=== PATIENT | female | born 1945 | race Two or more races ===

== ENCOUNTER 2017-05-24 17:09 | Inpatient (IN) | payer MEDICARE, MEDICAID ==
[~2017-05-24] VITALS: Ht 165.1 cm; Wt 64.9 kg
--- NOTE | 2017-05-24 17:13 | NUR ---
BBRA FROM HOME FOR SOB SINCE THURSDAY PER PT "SINCE THEY INCREASED MY CHEMO DOSAGE". GOWNED PT AWAITING MD ORDER. PLACED ON MONITOR.
--- NOTE | 2017-05-24 17:20 | NUR ---
RFA #20 IV ACCESS. BLOOD SAMPLE COLLECTED SENT TO LAB
[2017-05-24] MEDS ORDERED: IV NS 0.9% 1,000 ML BAG IV ONE (17:30)
[2017-05-24 17:45] LABS: BASOPHILS # (AUTO) 0.1 /CMM (0.0-0.2); BASOPHILS % (AUTO) 1.1 % (0.0-2.0); EOSINOPHILS % (AUTO) 0.3 % (0.0-6.0); HEMATOCRIT 30 % (33-45); HEMOGLOBIN 9.7 g/dL (11.5-14.8); LYMPHOCYTES # (AUTO) 1.5 /CMM (0.8-4.8); MEAN CORPUSCULAR HEMOGLOBIN 31 PG (26.0-33.0); MEAN CORPUSCULAR HGB CONC 33 g/dl (31.0-36.0); MEAN CORPUSCULAR VOLUME 96 fL (82-100); MONOCYTES # (AUTO) 0.7 /CMM (0.1-1.30); MONOCYTES % (AUTO) 6.9 % (2.0-12.0); NEUTROPHILS # (AUTO) 8.5 /CMM (1.8-8.9); NEUTROPHILS % (AUTO) 77.7 % (43.0-81.0); PLATELET COUNT (AUTO) 91 /CMM (150-450); RDW COEFFICIENT OF VARIATION 19.5 (11.5-15.0); RED BLOOD CELL COUNT(AUTO) 3.12 MIL/uL (4.0-5.2); WHITE BLOOD COUNT (AUTO) 10.8 K/uL (4.3-11.0)
[2017-05-24 17:46] LABS: CARBON DIOXIDE 16 mmol/L (21-32); CHLORIDE 106 mmol/L (98-107); CREATININE 1.4 mg/dL (0.6-1.3); GLUCOSE 142 mg/dL (74-106); POTASSIUM 5.2 mmol/L (3.5-5.1); SODIUM SERUM 137 mmol/L (136-145); UREA NITROGEN, BLOOD 30 mg/dL (7-18)
[2017-05-24 17:54] LABS: TROPONIN I 0.084 ng/mL (0.00-0.056)
[2017-05-24] MEDS ORDERED: IOHEXOL-350 100 ML VIAL IV ONE (17:54)
[2017-05-24] MEDS ORDERED: IV NS 0.9% 250 ML IV ONE (17:54)
[2017-05-24] MEDS ORDERED: CT SWABBABLE VALVE TRANS SET 1 EA INFUS.SET MC ONE (17:55)
--- NOTE | 2017-05-24 17:58 | NUR ---
PATIENT TAKEN TO CTA VIA STRETCHER.
[2017-05-24 17:59] LABS: ALANINE AMINOTRANSFERASE 18 U/L (12-78); ALBUMIN 3.7 g/dL (3.4-5.0); ALKALINE PHOSPHATASE 64 U/L (46-116); ASPARTATE AMINOTRANSFERASE 59 U/L (15-37); B-TYPE NATRIURETIC PEPTIDE 15311 PG/ML (0-125); BILIRUBIN,DIRECT 0.3 mg/dL (0.0-0.2); TOTAL PROTEIN, SERUM 6.5 g/dL (6.4-8.2)
[2017-05-24] MEDS ORDERED: LORAZEPAM INJ 2 MG/ML VIAL ONE (18:10)
--- NOTE | 2017-05-24 18:20 | NUR ---
CALLED DR VELASQUEZ'S OFFICE, TRANSFERRED CALL TO DR FULLER
--- NOTE | 2017-05-24 18:29 | NUR ---
PATIENT RETURNED FROM CTA IN STABLE CONDITION.
[2017-05-24] MEDS ORDERED: LORAZEPAM INJ 2 MG/ML VIAL IV ONE (18:30)
--- NOTE | 2017-05-24 18:44 | NUR ---
CALLED NURSING FRAME REPAIRER FOR AN BED
--- NOTE | 2017-05-24 18:51 | NUR ---
CALLED RT FOR ABG
--- NOTE | 2017-05-24 19:11 | NUR ---
PAGED DR TRUJILLO FOR CALL BACK
--- NOTE | 2017-05-24 19:15 | NUR ---
REPORT GIVEN TO KATIUSKA JACQUES FOR CRISTOFER.
[2017-05-24 19:18] LABS: ABG BASE EXCESS -14.4 mmol/L; ABG OXYGEN SATURATION 93.3 % (92.0-98.5); ABG PCO2 20.5 mmHg (35.0-45.0); ABG PH 7.311 (7.350-7.450); ABG PO2 86.3 mmHg (75.0-100.0); AaDO2 146.6 mmHg; COHb 1.2 % (0.5-1.5); MetHb 0.7 % (0.0-1.5); O2Hb 91.5 % (94.0-97.0); SITE, ABG Right Radial
[2017-05-24] MEDS ORDERED: PIPERACILLIN /TAZOBACTAM 3.375 G VIAL IV ONE (19:29)
[2017-05-24] MEDS ORDERED: VANCOMYCIN 1 GM VIAL ONE (19:29)
[2017-05-24] MEDS ORDERED: ASPIRIN 81 MG TAB.CHEW PO ONE (19:30)
[2017-05-24] MEDS ORDERED: IV NS 0.9% 500 ML BAG IV ONE (19:30)
[2017-05-24] MEDS ORDERED: VANCOMYCIN 1 GM in IV D5W 250 ML IV ONE (19:30)
[2017-05-24] MEDS ORDERED: ASPIRIN 81 MG TAB.CHEW ONE (19:30)
[2017-05-24] MEDS ORDERED: PIPERACILLIN /TAZOBACTAM 3.375 G in IV D5W 50 ML IV ONE (19:30)
[2017-05-24 19:34] LABS: INR 1.17 (0.87-1.13); PROTHROMBIN TIME 12.7 SECS (9.5-12.7)
[2017-05-24 19:35] LABS: D-DIMER 9.9 mg/L(FEU (0.17-0.50)
--- NOTE | 2017-05-24 19:46 | NUR ---
RESIDENTIAL SPECIALIST INFORMED NURSING SUPERVERVISOR OF UPGRADE TO ICU
--- NOTE | 2017-05-24 20:18 | NUR ---
REPORT GIVEN TO ANNA HARP FOR KAYAKING INSTRUCTOR AND CRISTOFER. RECEIVED CALL FROM LAB FOR LACTIC ACID 4.1. DR FULLER IS NOTIFIED AND HE SAID HE WILL SPEAK TO DR VELASQUEZ AGAIN. PAGED DR VELASQUEZ.
--- NOTE | 2017-05-24 20:31 | NUR ---
Transported to icu room 263 via als protocol, no incident noted. Humberto HARP at bedside.
--- NOTE | 2017-05-24 20:32 | NUR ---
DENSITY CONTROL PUNCHER NOTES RECEIVED PT ON LILIBETH FROM ER, DX OF SEPSIS AND POSSIBLE PE. A/O X 3, [place]OV[place]/DANISH/[place] IS[place]ER SPEAKING. TELE READS SR IN 90-100s. ON O2 VIA NC AT 3 LPM, EZEQUIEL WELL. IV SITES AT LFA 20G AND LAC 20G, RUNNING VANCO 1GM. SKIN IS INTACT. PT HAS SOB, SATING 99%. REFUSES TO REMOVE CLOTHS AND WEAR GOWN, HOB ELEVATED, SIDE RAILS X2. CALL LIGHT WITHIN REACH. ALL NEEDS MET AND QUESTIONS ANSWERED. AWAITING ADMISSION ORDERS.
[2017-05-24 20:39] VITALS: BP 132/95
[2017-05-24 20:45] VITALS: BP 132/98
[2017-05-24 21:01] VITALS: BP 90/57
[2017-05-24 21:30] VITALS: BP 88/61
[2017-05-24 22:00] VITALS: BP 99/56
[2017-05-24] MEDS ORDERED: PANTOPRAZOLE 40 MG VIAL IV SCH (22:00)
[2017-05-24] MEDS: ALBUTEROL FS 2.5 MG/0.5 ML VIAL.NEB NEB SCH ×2 (22:00→23:14)
[2017-05-24] MEDS: IPRATROPIUM NEB FS 0.5 MG/2.5 ML AMPUL.NEB NEB SCH ×2 (22:00→23:14)
[2017-05-24] MEDS ORDERED: IV D5/ 0.9% NACL 1,000 ML IV PRN (22:00)
[2017-05-24] MEDS ORDERED: ENOXAPARIN SODIUM 80 MG/0.8 ML DISP.SYRIN SQ SCH (22:00)
--- NOTE | 2017-05-24 22:00 | NUR ---
OUTSOLE ROUNDER NOTES SPOKE TO DR VELASQUEZ REGARDING PT STATUS, ADMISSION ORDERS RECEIVED.
[2017-05-24] MEDS ORDERED: PANTOPRAZOLE 40 MG VIAL ONE (22:37)
[2017-05-24] MEDS ORDERED: ENOXAPARIN SODIUM 80 MG/0.8 ML DISP.SYRIN SQ ONE (22:37)
[2017-05-24 22:40] LABS: CALCIUM, SERUM 7.1 mg/dL (8.5-10.1); CREATININE 1.5 mg/dL (0.6-1.3); MAGNESIUM 2.2 mg/dL (1.8-2.4); POTASSIUM 5.4 mmol/L (3.5-5.1)
[2017-05-24 23:00] VITALS: BP 92/61
[2017-05-24] MEDS ORDERED: IPRATROPIUM NEB FS 0.5 MG/2.5 ML AMPUL.NEB ONE (23:12)
[2017-05-24] MEDS ORDERED: ALBUTEROL FS 2.5 MG/0.5 ML VIAL.NEB ONE (23:12)
[2017-05-24 23:50] LABS: THYROID STIMULATING HORMONE 20.186 uIU/mL (0.358-3.74)
[2017-05-25] VITALS (31 sets, daily range): BP systolic 35–139; BP diastolic 14–89
--- NOTE | 2017-05-25 00:10 | NUR ---
RESEARCH LEADER NOTES DR VELASQUEZ CALLED TO GET PT STATUS UPDATE. NEW ORDERS RECEIVED.
[2017-05-25] MEDS ORDERED: LEVOTHYROXINE SODIUM 100 MCG TABLET ONE (00:22)
[2017-05-25] MEDS: LEVOTHYROXINE SODIUM 50 MCG TABLET PO SCH ×2 (00:25→00:27)
[2017-05-25] MEDS ORDERED: IV NS 0.9% 500 ML IV ONE ×3 (00:30→06:00)
[2017-05-25] MEDS ORDERED: IV NS 0.9% 1,000 ML IV PRN ×2 (00:30→07:30)
--- NOTE | 2017-05-25 00:30 | NUR ---
INDUSTRIAL ANALYST NOTES PT REFUSED LEVOTHYROXINE DOSE AT 0030, STATING SHE DOES NOT WANT THE GENETIC MEDICATION AND WILL TELL HER TO BRING HER OWN BRAND NAME LEVOTHYROXINE MEDS FROM HOME. PT STATES SHE USUALLY TAKES 50 MCG QDAILY BUT HASN'T TAKEN IT FOR THE LAST THREE DAYS BECAUSE HER DR TOLD HER TO HOLD OFF ON IT SINCE HER T4 LEVELS WERE ELEVATED DURING HER LAST APPOINTMENT WITH HER PCP.
--- NOTE | 2017-05-25 02:45 | NUR ---
BARREL ENDSHAKE ADJUSTER NOTES 0245 PT NEEDED TO URINATE, BED DAO PROVIDED BUT PT REFUSED TO USE IT. INSISTED ON WALKING TO THE RESTROOM BUT RN DID NOT ALLOW. COMPROMISED ON BSC. AFTER USE OF BSC, PT NOTED WITH SOB, CHEST PAIN (8/10 RADIATING TO BACK), PALLOR AND HYPOXIA. PT IS ON SIMPLE MASK AT 6LPM BUT KEEPS REMOVING IT, O2 SAT MAINTAINING ABOVE 94%. [address] VELASQUEZ PAGED. [address] VELASQUEZ CALLED BACK. EKG READS SINUS TACHYCARDIA WITH ANTEROLATERAL INFARCT. NEW ORDERS RECEIVED INCLUDING MORPHINE 1MG IVP ONETIME NOW. STAT TROPONIN AND LACTIC ACID. 0316 MORPHINE 1MG IVP GIVEN. LABS DRAWN. 0330 PT DENIES CHEST PAIN. REMAINS SOB BUT NO LONGER PALE, BP 95/58 HR 102.
[2017-05-25] MEDS ORDERED: MORPHINE SULFATE INJ 2 MG/ML DISP.SYRIN ONE (03:05)
[2017-05-25] MEDS ORDERED: MORPHINE SULFATE INJ 2 MG/ML DISP.SYRIN IV ONE (03:30)
[2017-05-25 03:36] LABS: APPEARANCE,URINE CLEAR (CLEAR); BILIRUBIN,URINE 1+ (NEGATIVE); BLOOD, URINE 1+ Ery/uL (NEGATIVE); COLOR,URINE YELLOW (YELLOW); KETONES,URINE NEGATIVE (NEGATIVE); LEUKOCYTE ESTERASE ,URINE NEGATIVE (NEGATIVE); NITRITE, URINE NEGATIVE (NEGATIVE); PH,URINE 5.5 (5.0-8.0); PROTEIN,URINE 2+ mg/dl (NEGATIVE); UGLUCOSE NEGATIVE (NEGATIVE); UROBILINOGEN,URINE 0.2 EU/dL (0.2)
[2017-05-25 03:38] LABS: TROPONIN I 0.117 ng/mL (0.00-0.056)
[2017-05-25 03:50] LABS: RBC,URINE NONE SEEN /HPF (0-2); WBC,URINE 0-2 /HPF (0-3)
[2017-05-25 03:51] LABS: BACTERIA,URINE None seen /HPF (None Seen); SQUAMOUS EPITHELIAL CELL,UR Moderate /HPF (None Seen)
[2017-05-25] MEDS ORDERED: PIPERACILLIN /TAZOBACTAM 3.375 G VIAL IV ONE (04:17)
[2017-05-25] MEDS ORDERED: PIPERACILLIN /TAZOBACTAM 3.375 G in IV D5W 50 ML IV SCH (05:00)
[2017-05-25 06:16] LABS: BASOPHILS % (AUTO) 0.1 % (0.0-2.0); HEMATOCRIT 29 % (33-45); HEMOGLOBIN 9.4 g/dL (11.5-14.8); LYMPHOCYTES # (AUTO) 0.7 /CMM (0.8-4.8); LYMPHOCYTES % (AUTO) 5.2 % (20.0-44.0); MEAN CORPUSCULAR HEMOGLOBIN 32 PG (26.0-33.0); MEAN CORPUSCULAR HGB CONC 32 g/dl (31.0-36.0); MEAN CORPUSCULAR VOLUME 98 fL (82-100); MONOCYTES # (AUTO) 1.1 /CMM (0.1-1.30); MONOCYTES % (AUTO) 7.8 % (2.0-12.0); NEUTROPHILS % (AUTO) 86.9 % (43.0-81.0); PLATELET COUNT (AUTO) 54 /CMM (150-450); RDW COEFFICIENT OF VARIATION 20.8 (11.5-15.0); WHITE BLOOD COUNT (AUTO) 13.8 K/uL (4.3-11.0)
[2017-05-25 06:28] LABS: CALCIUM, SERUM 6.8 mg/dL (8.5-10.1); CREATININE 1.4 mg/dL (0.6-1.3); POTASSIUM 5.7 mmol/L (3.5-5.1)
[2017-05-25 06:59] LABS: TROPONIN I 0.103 ng/mL (0.00-0.056)
--- NOTE | 2017-05-25 07:37 | NUR ---
AUTOMATIC BUFFER NOTES CALLED DR VELASQUEZ REGARDING BP AND AM LABS. NEW ORDER RECEIVED FOR 1 L NS BOLUS TO BRING SBP >100. IF SBP IS NOT >100 AFTER 1 L BOLUS, GIVE ANOTHER 1 L NS BOLUS. ORDERS ENDORSED TO AM NURSE.
--- NOTE | 2017-05-25 07:51 | NUR ---
INITIAL FORM RAISER NOTE RCVD PT AWAKE AND ALERT, MAINLY [place]ONG KONGER/KYRGYZ SPEAKING UNDERSTANDS SOME YI. DENIES ANY PAIN AT THIS TIME. ST ON TELE. ON SIMPLE MASK AT THIS TIME. PT BECOMES SHORT OF BREATH UNDER LIGHT EXERTION. IV SITES C/D/I/PATENT. NO S/O INFILTRATION/PHLEBITIS OBSERVED IVF INFUSING. WILL CONTINUE TO MONITOR PT FOR SAFETY AND COMFORT. CALL LIGHT WITHIN REACH. BED IN LOW AND LOCKED POSITION.
[2017-05-25 07:56] LABS: BAND % (MANUAL) 7 % (0.0-5.0); EOSINOPHILS % (MANUAL) 2 % (0-4); LYMPHOCYTES % (MANUAL) 6 % (16-48); METAMYELOCYTES % 1 % (0-0); MONOCYTES % (MANUAL) 6 % (0-11.0); NEUTROPHILS % (MANUAL) 78 (42-76)
[2017-05-25] MEDS ORDERED: LEVOTHYROXINE SODIUM 50 MCG TABLET PO SCH (08:13)
[2017-05-25] MEDS ORDERED: SODIUM POLYSTYRENE SULFONATE 15 G/60 ML BOTTLE PO ONE (09:00)
[2017-05-25] MEDS ORDERED: IV NS 0.9% 1,000 ML BAG IV ONE (09:00)
[2017-05-25] MEDS ORDERED: NOREPINEPHRINE 16 MG in IV D5W 500 ML IV PRN (09:30)
[2017-05-25] MEDS ORDERED: EPINEPHRINE (1:10,000) SYRINGE 1 MG/10 ML DISP.SYRIN ONE ×2 (09:43→10:44)
[2017-05-25] MEDS ORDERED: SODIUM BICARBONATE SYR 50 MEQ/50 ML DISP.SYRIN ONE (10:18)
[2017-05-25] MEDS ORDERED: PHENYLEPHRINE 40 MG in IV D5W 250 ML IV PRN (10:30)
[2017-05-25] MEDS ORDERED: DOPamine 400 MG/D5W 250 ML RTU PIGGYBACK IV ONE (10:44)
[2017-05-25] MEDS ORDERED: NOREPINEPHRINE 4 MG/4 ML AMPUL IV ONE (10:44)
[2017-05-25] MEDS ORDERED: ATROPINE SULFATE 1 MG/10 ML DISP.SYRIN ONE (10:44)
[2017-05-25 10:53] LABS: ABG BASE EXCESS -0.4 mmol/L; ABG OXYGEN SATURATION 91.5 % (92.0-98.5); ABG PH 7.532 (7.350-7.450); COHb 1.1 % (0.5-1.5); MetHb 1.9 % (0.0-1.5); O2Hb 88.8 % (94.0-97.0); PEEP,BG 5 cm H2O; SITE, ABG A-Line; VENT MODE, BG AC 22; VT, ABG 500 mL
--- NOTE | 2017-05-25 11:55 | NUR ---
HOT WIRE GLASS TUBE CUTTER NOTE PT SAT AT EDGE OF BED ATTEMPTING TO GET OUT OF BED, BECAME RESTLESS, SHORT OF BREATH, DR. VELASQUEZ AT BEDSIDE. PT ASSISTED BACK IN BED, HOB ELEVATED. DR. VELASQUEZ INSTRUCTING PT IN TUNISIAN TO REMAIN IN BED. SIMPLE MASK RE-STARTED PER 'S ORDER, PT REMAINED RESTLESS AND SHORT OF BREATH. RN STEPPED OUT OF ROOM TO GIVE RESULTS TO DR. SYKES. MEDIA ANALYTICS MANAGER CALLED RN PT'S HR DROPPED TO 60'S UPON ENTERING ROOM PT WAS UNRESPONSIVE, PEA. FIRST CODE LESLEY CALLED. PT INTUBATED AND CONNECTED TO VENT. ALL MEDICATIONS GIVEN ORDERED BY DR. KAUR/MONY. SECOND CODE BLUE CALLED MOMENTS LATER, PT HAD NO PULSE. PULSE RESUMED. THIRD CODE BLUE CALLED PT HAD NO PULSE. PT WAS PRONOUNCED BY SCOTTY SOLIS DNP. PT'S AT BEDSIDE INFORMED OF PT'S STATUS. CONDOLENCES GIVEN.
[2017-05-25] MEDS ORDERED: PIPERACILLIN /TAZOBACTAM 2.25 G in IV D5W 50 ML IV SCH (12:00)
--- NOTE | 2017-05-25 12:01 | NUR ---
Social service consult requested by Dr. Kelvin Pablo due to pt. expiring and family might need assistance with homes. SW met with pt's KATIUSKA Myles, pt's , pt's son and [id number] bedside. SW offered her condolences and inquired if they needed any assistance with information on cemeteries/burial. Pt's son informed SW that currently they do not need any information as they are still processing as to what happened. SW informed them she is available and will leave the list of burial/cemeteries information with KATIUSKA Myles. SW informed KATIUSKA Myles she is available if needed.
--- NOTE | 2017-05-25 13:30 | NUR ---
PT'S REMAINS TRANSPORTED TO THE [facility] [place] PER HOSPITAL'S PROTOCOL.
--- NOTE | 2017-05-25 14:41 | NUR ---
DELINQUENCY PREVENTION OFFICER NOTE ICT ACCOUNT MANAGER'S OFFICE CALLED SPOKE WITH VIBHA BRIAN, CAUSE OF , AND ADMISSION DIAGNOSIS GIVEN TO [facility] WHO STATES THAT PT'S CASE IS NOT A ICT ACCOUNT MANAGER'S CASE.
[2017-05-25] MEDS ORDERED: VANCOMYCIN 1 GM in IV D5W 250 ML IV SCH (20:00)
[2017-05-25] MEDS ORDERED: PANTOPRAZOLE 40 MG VIAL IV SCH (21:00)
== END 2017-05-25 10:37 | disposition expired | DRG 871 ==
LOC: ER 17:17 → ICU 20:05
PROVIDERS: ADMIT Family Medicine; ATTEND Family Medicine
PROC: 04HK33Z Insertion of Infusion Device into Right Femoral Artery, Percutaneous Approach (ICD-10-PCS; principal; 2017-05-25)
PROC: 05H633Z Insertion of Infusion Device into Left Subclavian Vein, Percutaneous Approach (ICD-10-PCS; 2017-05-25)
PROC: B547ZZA Ultrasonography of Left Subclavian Vein, Guidance (ICD-10-PCS; 2017-05-25)
PROC: 5A12012 Performance of Cardiac Output, Single, Manual (ICD-10-PCS; 2017-05-25)
PROC: 0BH18EZ Insertion of Endotracheal Airway into Trachea, Via Natural or Artificial Opening Endoscopic (ICD-10-PCS; 2017-05-25)
DX: A41.9 Sepsis, unspecified organism (principal); J96.00 Acute respiratory failure, unspecified whether with hypoxia or hypercapnia; I21.4 Non-ST elevation (NSTEMI) myocardial infarction; D65 Disseminated intravascular coagulation [defibrination syndrome]; K81.0 Acute cholecystitis; N17.9 Acute kidney failure, unspecified; E87.2 Acidosis; J90 Pleural effusion, not elsewhere classified; I50.20 Unspecified systolic (congestive) heart failure; E03.9 Hypothyroidism, unspecified; D63.8 Anemia in other chronic diseases classified elsewhere; I25.10 Atherosclerotic heart disease of native coronary artery without angina pectoris; K21.9 Gastro-esophageal reflux disease without esophagitis; K59.00 Constipation, unspecified; E87.5 Hyperkalemia; I11.0 Hypertensive heart disease with heart failure; E78.5 Hyperlipidemia, unspecified; M81.0 Age-related osteoporosis without current pathological fracture; Z85.3 Personal history of malignant neoplasm of breast; E86.0 Dehydration; E83.51 Hypocalcemia; R63.0 Anorexia; Z68.23 Body mass index [BMI] 23.0-23.9, adult; C50.919 Malignant neoplasm of unspecified site of unspecified female breast; Z79.899 Other long term (current) drug therapy; D69.6 Thrombocytopenia, unspecified; E80.6 Other disorders of bilirubin metabolism; G89.4 Chronic pain syndrome; I95.9 Hypotension, unspecified; R74.8 Abnormal levels of other serum enzymes; K81.9 Cholecystitis, unspecified; R65.20 Severe sepsis without septic shock
CPT/HCPCS: 36415; 36600; 71010-TC; 76705-TC; 80048-TC; 80076-TC; 80305; 81000-TC; 82150-TC; 82803-TC; 83540-TC; 83605-TC; 83690-TC; 83735-TC; 83880; 84443-TC; 84484-TC; 85025-TC; 85378-TC; 85730-TC; 87040-TC; 87081-TC; 87086-TC; 92950-TC; A4606; A6402; A6403; C9113; J0171; J0461; J1265; J1650; J2060; J2270; J2370; J2543; J3370; J3490; J7030; J7040; J7042; J7050; J7060; Q9967; Z7610